=== PATIENT | male | born 1965 | race Caucasian/White ===

== ENCOUNTER → 2020-01-06 | Outpatient (CLI) | payer BC ==
--- NOTE | 2020-01-06 14:10 | DRAGON STRESS TEST REPORT ---
Exercise stress test Date: January 06, 2020 Referring physician: Jose Luo PA-C Performing physician: Srinivasan Carroll MD Indication: Chest pain Clinical history 54-year-old male with dyslipidemia who presented with chest pain. Referring physician has requested the performance of a plain treadmill stress test. Procedure The patient presented to the stress lab. The patient exercised on the treadmill according to [facility] protocol for a total of 8 minutes and 25 seconds achieving a maximum heart rate 162 bpm which was 98 % of maximum predicted of 164 bpm. The maximum workload was 10.1 METS. The presenting EKG showed sinus rhythm at 64 bpm. The initial blood pressure was 138/92 mmHg. Upon exercise the heart rate daija to a maximum of 162 beats per minute and the blood pressure daija to a maximum of 170/62 mmHg. The patient had appropriate increment in heart rate and blood pressure with exercise. At peak exercise there is 1 to 2 mm horizontal to mildly upsloping ST segment depression in the lateral precordial leads by movement artifact is less pronounced. The exercise EKG can at best be considered equivocal for myocardial ischemia. There is considerable movement related artifact which makes further interpretation of the stress EKG difficult. The recovery EKG did not reveal any evidence of myocardial ischemia. The patient tolerated the exercise well and did not report chest pain or dyspnea. The test was terminated on account of patient fatigue and patient having achieved target heart rate. The patient's EKG and vital signs were monitored throughout the procedure. Conclusion The exercise EKG is borderline ( equivocal) for myocardial ischemia. The exercise EKG has considerable movement related artifact which limits further conclusion. Fair exercise tolerance. Normal heart rate and blood pressure response to exercise. MTDD
== END ==
LOC: SP 08:36
PROVIDERS: ATTEND Physician Assistant
DX: R07.9 Chest pain, unspecified (principal); E78.5 Hyperlipidemia, unspecified
CPT/HCPCS: 93017